=== PATIENT | male | born 1995 | race Caucasian/White ===

== ENCOUNTER 2021-04-01 20:40 | Emergency (ER) | payer OTHER ==
[~2021-04-01] VITALS: Ht 190.5 cm; Wt 99.8 kg
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
--- NOTE | 2021-04-01 21:40 | NUR ---
PT TO CT VIA [facility]
--- NOTE | 2021-04-01 21:47 | NUR ---
PT RETURNED FROM CT
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
[2021-04-01] MEDS ORDERED: IBUP-1955 PO (22:56)
--- NOTE | 2021-04-01 23:06 | NUR ---
Patient discharged to home in stable condition. Written and verbal after care instructions given. Patient verbalizes understanding of instruction.
[2021-04-02 01:37] VITALS: BP 122/70
== END 2021-04-01 23:10 | disposition home or self-care (01) ==
LOC: ER 20:40
DX: S01.81XA Laceration without foreign body of other part of head, initial encounter (principal); Y00.XXXA Assault by blunt object, initial encounter; Y93.89 Activity, other specified; Y92.89 Other specified places as the place of occurrence of the external cause; Y99.8 Other external cause status
CPT/HCPCS: 70450-TC